=== PATIENT | female | born 2005 | race Two or more races ===

== ENCOUNTER 2024-11-25 06:56 | Emergency (ER) | payer MEDICAID, SELFPAY ==
[2024-11-25 06:57] VITALS: BMI 25.2
[2024-11-25 07:05] VITALS: BP 113/60; PULSE 71; RESP 16; TEMP 37; O2SAT 99
--- NOTE | 2024-11-25 07:11 | XR_ITS ---
Examination: PA lateral chest 2 views TECHNIQUE: Upright PA lateral chest 2 views Date and time: November 25, 2024 0739 hours INDICATIONS: Coughing chest pain beginning 2 weeks ago. FINDINGS: Normal heart size. Lungs are clear. The osseous structures are intact IMPRESSION: No active disease.
[2024-11-25 07:38] LABS: Strep A Rapid Positive (Negative)
--- NOTE | 2024-11-25 07:41 | PD.EDURI ---
Upper Respiratory Inf. RME/HPI General Chief Complaint: Dental/Oral/Throat Stated Complaint: THROAT PAIN, TROUBLE BREATHING Time Seen by Provider: 11/25/24 06:57 Arrival date/time: 11/25/24 06:56 18-year-old female with no significant medical problems presents to the emergency dept today for complaints of cough, congestion and sore throat ongoing x 2 weeks. Patient reports no chance of Limitations: no limitations Related Data Previous Rx's ?Medication ?Instructions ?Recorded azithromycin 250 mg tablet See Rx Instructions PO .COMPLEX #6 06/13/23 tabs albuterol sulfate 90 mcg/actuation 2 puff inhalation Q6H PRN 11/25/24 aerosol inhaler (Ventolin HFA) shortness of breath or wheezing #8.5 grams azithromycin 500 mg tablet See Rx Instructions PO .COMPLEX #6 11/25/24 tabs ibuprofen 600 mg tablet 600 mg PO Q6H #30 tabs 11/25/24 Allergies Allergy/AdvReac Type Severity Reaction Status Date / Time amoxicillin Allergy Unknown RASH Verified 06/13/23 11:37 Review of Systems Review of Systems Systems Reviewed: All systems reviewed, normal except as documented Constitutional Constitutional: Reports system reviewed and no additional complaints, except as documented, Denies fever(s) and Denies headache(s) Eyes Eyes: Reports system reviewed and no additional complaints, except as documented and Denies blurry vision ENT Ears, Nose, Mouth, and Throat: Reports system reviewed and no additional complaints, except as documented, Denies headache(s), Reports nasal congestion, Reports nasal discharge and Reports sore throat Cardiovascular Cardiovascular: Reports system reviewed and no additional complaints, except as documented, Denies chest pain and Denies dyspnea Respiratory Respiratory: Reports system reviewed and no additional complaints, except as documented, Reports chest congestion, Reports cough and Denies dyspnea Gastrointestinal Gastrointestinal: Reports system reviewed and no additional complaints, except as documented and Denies abdominal pain Integumentary/Breasts Skin/Breast: Reports system reviewed and no additional complaints, except as documented and Denies rash Neurologic Neurologic: Reports system reviewed and no additional complaints, except as documented, Reports as per HPI and Denies headache(s) Past Medical History Past Medical History NEUROLOGIC: Negative Neurological Disorders, Cerebrovascular Accident or Transient Ischemic Attacks (TIA) CARDIAC: Negative Cardiac Disorders, Myocardial Infarction, Cardiac Arrhythmia or Congestive Heart Failure RESPIRATORY: Negative Chronic Obstructive Pulmonary Disease (COPD) or Asthma GASTROINTESTINAL: Negative Gastrointestinal Disorders, Liver Cancer or Hepatitis GENITOURINARY: Negative Genitourinary Disorders or Renal Disease MUSCULOSKELETAL: Negative Musculoskeletal Disorders or Muscular Dystrophy ENT: Negative Blind or Deafness ENDOCRINE: Negative Endocrine Disorders, Diabetes Mellitus Type 1 or Diabetes Mellitus Type 2 HEMATOLOGIC: Negative Blood Disorders or Sickle Cell Disease PSYCHO/SOCIAL: Negative Psychiatric Problems OTHER HISTORY: Negative Hospitalization, Down Syndrome or Developmental Delay Social History SMOKING STATUS: Never smoker SECOND HAND EXPOSURE: No ED Exam General Limitations: Present no limitations General appearance: Present alert and in no apparent distress Head Head exam: Present atraumatic Eye Eye exam: Present normal appearance, PERRL and EOMI ENT ENT exam: Present mucous membranes moist Expanded ENT Exam Throat exam: Present tonsillar erythema and tonsillomegaly; Absent tonsillar exudate, R peritonsillar mass, L peritonsillar mass or muffled voice Neck Neck exam: Present normal inspection, full ROM and trachea midline Chest Chest inspection: Present normal inspection and symmetric chest wall rise Respiratory Respiratory exam: Present normal lung sounds bilaterally Cardiovascular Cardiovascular exam: Present regular rate, normal rhythm and normal heart sounds Abdominal Exam Abdominal exam: Present soft and normal bowel sounds Extremities Exam Extremities exam: Present normal inspection and full ROM Back Exam Back exam: Present normal inspection and full ROM Neurological Exam Neurological exam: Present alert, oriented X3 and CN II-XII intact Psychiatric Psychiatric exam: Present normal affect and normal mood Skin Skin exam: Present warm, dry, intact and normal color Course Quality Measures none Orders Category Date Time Status Bedside COVID-19 Antigen Test NOW Care 11/25/24 07:11 Completed Bedside Influenza A&B Antigen Test NOW Care 11/25/24 07:11 Completed XR chest 2V Stat Exams 11/25/24 07:11 Completed Strep A Rapid Stat Lab 11/25/24 07:13 Completed Vital Signs Vital signs: Vital Signs Temperature 98.6 F 11/25/24 07:05 Pulse Rate 71 11/25/24 07:05 Respiratory Rate 16 11/25/24 07:05 Blood Pressure 113/60 11/25/24 07:05 Pulse Oximetry (%) 99 11/25/24 07:05 Oxygen Delivery Method Room Air 11/25/24 07:05 o2 sat 99% r.a wnl Upper Respiratory Infection MDM Narrative MDM Narrative:: 18-year-old female with no significant medical problems presents to the emergency dept today for complaints of cough, congestion and sore throat ongoing x 2 weeks. Patient reports no chance of On exam patient well-appearing patient does not appear ill or toxic in no acute distress patient is no difficulty breathing. On exam patient has tonsillar erythema tonsillomegaly no trismus hoarseness of voice no evidence of peritonsillar abscess Chest x-ray obtained no acute pneumonic infiltrates noted per my interpretation Patient checked for flu COVID and strep patient tested positive for strep Patient discharged home in no distress to follow-up with primary care doctor in the next 24 to 48 hours and for any worsening symptoms to return to the ER immediately Patient data External records reviewed:: [facility] previous records Clinical information provided by:: patient Social determinants that could affect healthcare access:: none Patient has the following chronic illnesses:: none How is presenting disease/condition affected by chronic disease/condition?: no chronic disease Evaluation data The following diagnostics were reviewed and interpreted by me:: lab results and radiology exam(s) Lab and/or radiology exams considered but not ordered:: lab and rad obtained Interpretation Summary: reviewed by me Medications / Prescriptions Medications or Prescriptions considered but not ordered:: given Medication administrations:: given Consultations Consultation(s) initiated? (list below): No Diagnosis Upper Respiratory Differential Diagnosis: upper respiratory infection, viral infection, bronchitis, influenza and pharyngitis Most likely diagnosis given after review of the tests above:: pharyngitis Admission Indicated Admission indicated?: not indicated Admission Request Was there a request for admission?: No Disposition Plan Disposition Plan: Discharge Discharge Attestation Discharge Attestation: The patient and all family members were given an opportunity to ask questions and understood the discharge instructions. Discharge instructions specifically effects, indications for sooner follow up or return to the emergency department, and the expected course of current diagnosis. Patient condition: Stable Discharge Plan Plan Patient Disposition: HOME (Self Care) Discharge Disposition comment: stable Prescriptions/Referrals Prescriptions/Med Rec: New ibuprofen 600 mg tablet 600 mg PO Q6H Qty: 30 0RF albuterol sulfate [Ventolin HFA] 90 mcg/actuation HFA aerosol inhaler 2 puff inhalation Q6H PRN (Reason: shortness of breath or wheezing) Qty: 8.5 0RF azithromycin 500 mg tablet See Rx Instructions .ROUTE .COMPLEX Qty: 6 0RF Rx Instructions: take 500 mg today (day 1), then 250 mg for 4 days (days 2-5) No Action azithromycin 250 mg tablet See Rx Instructions PO .COMPLEX Qty: 6 0RF Rx Instructions: For 250 mg dose pack: take 500 mg today (day 1), then 250 mg for 4 days (days 2-5) PO Referrals: Ilia Metzger MD [Primary Care Provider] - 11/26/24 Problem List Clinical Impression: Strep pharyngitis Patient/Caregiver Discharge Instructions Education Materials: ED Pharyngitis, Strep (Confirmed) Additional Instructions: please follow up with your pcp in the next 24-48 hrs for worsening symptoms return immediately Print Language: Latvian Stand Alone Forms: [employer] Award Info., Work/School Release, Patient Portal Info Letter PA/TYRELL Supervising Physician PA/TYRELL Supervising Physician: dr dickerson
[2024-11-25 08:03] VITALS: BP 107/71; PULSE 70; RESP 17; TEMP 36.8; O2SAT 99
== END 2024-11-25 08:03 | disposition home or self-care (01) ==
PROVIDERS: Nurse Practitioner Primary Care; Emergency Provider Emergency Medicine; PCP Family Medicine
DX: J02.0 Streptococcal pharyngitis (principal)
CPT/HCPCS: 71046; 87400; 87651; 87811; 99283